=== PATIENT | female | born 1990 | race African-American/Black ===

== ENCOUNTER 2019-02-04 14:12 | Emergency (ER) | payer OTHER ==
[~2019-02-04] VITALS: Ht 160 cm; Wt 81.7 kg
[~2019-02-04 14:12] MED LIST: ANUSOL1 EACH RC; CYCLOBENZAPRINE5 MG PO; EMADINE5 ML OP; ERYTHROMYCIN E3.5 G1 OPHTHALMIC; FLONASE 0.05%50 MCG NASAL; HYDROCODONE-AP1 EAC6 PO; IBUPROFEN 600600 M1 PO; IRON236 MG; KEFLEX500 MG PO; NOHOMEMEDICATIONS; PEPCID40 MG PO; PRENATAL; SENNA S TABLET1 EACH PO; TRINATE TABLET1 TAB PO; ULTRAM 50MG TAB50 MG PO; VICODIN 5-5001 EACH PO; ZPAK PO
[2019-02-04 15:43] LABS: URINE BILIRUBIN NEGATIVE (Negative); URINE BLOOD NEGATIVE (Negative); URINE CLARITY CLEAR; URINE COLOR YELLOW; URINE GLUCOSE-RANDOM* NEGATIVE (Negative); URINE KETONES NEGATIVE (Negative); URINE LEUKOCYTES-REFLEX TRACE (Negative); URINE NITRITE-REFLEX NEGATIVE (Negative); URINE PROTEIN (DIPSTICK) NEGATIVE (Negative)
[2019-02-04 15:53] LABS: ABSOLUTE NEUTROPHILS 3.6 thou/uL (1.4-8.2); BASOPHILS 0.6 % (0.0-2.0); HEMATOCRIT 40.1 % (37.0-47.0); HEMOGLOBIN 13.3 gm/dL (12.0-15.0); LYMPHOCYTES 40.6 % (24.0-44.0); MCHC 33.1 g/dL (28.0-37.0); MCV 78.5 fL (80.0-100.0); MONOCYTES 5.5 % (1.0-8.0); POLYS 49.3 % (36.0-66.0); RBC 5.11 mil/uL (4.20-5.00); RDW 14.5 % (10.5-14.5); WBC 7.2 thou/uL (4.0-11.0)
[2019-02-04 16:24] LABS: LARGE PLATELETS FEW; PLATELET COUNT 243 thou/uL (150-400); PLATELET ESTIMATE NORMAL
[2019-02-04 16:54] LABS: ALBUMIN 3.6 g/dL (3.4-5.0); CREATININE 0.8 mg/dL (0.6-1.0); TOTAL BILIRUBIN 0.6 mg/dL (<0.1-1.0); TOTAL PROTEIN 7.2 g/dL (6.4-8.2)
[2019-02-04] MEDS ORDERED: LEVSIN0.125 MG PO (18:23)
[2019-02-04] MEDS ORDERED: OMEPRAZOLE40 MG PO (18:23)
[2019-02-04 18:42] VITALS: BP 108/70
== END 2019-02-04 18:43 | disposition home or self-care (01) ==
LOC: ER 14:12
PROVIDERS: Physician Assistant
DX: M62.838 Other muscle spasm (principal); R11.2 Nausea with vomiting, unspecified; R10.84 Generalized abdominal pain; Z90.49 Acquired absence of other specified parts of digestive tract; Z98.890 Other specified postprocedural states; Z79.899 Other long term (current) drug therapy